=== PATIENT | male | born 1930 | race Caucasian/White ===

== ENCOUNTER 2018-01-08 13:32 | Inpatient (IN) ==
--- NOTE | 2018-01-08 14:04 | Emergency Department Note ---
Disposition Clinical Impression: Diabetic infection of left foot Osteomyelitis Qualifiers: Osteomyelitis type: unspecified type Osteomyelitis location: foot Laterality: left Qualified Code(s): M86.9 - Osteomyelitis, unspecified Disposition: Admitted As Inpatient Condition: Good Forms: ED Satisfaction Letter Time of Disposition: 15:22 General Adult HPI - General Chief complaint: ED Extremity Problem,Nontraumatic Stated complaint: Foot Ulcers Infected Time Seen by Provider: 01/08/18 13:43 Source: patient, family Mode of arrival: ambulatory Limitations: no limitations - History of Present Illness HPI Narrative: This is an 87-year-old male who was seen by podiatry yesterday because of concern for infection in his left foot. He was told to return if the erythema worsened. He has been taking antibiotics, and apparently the course was extended yesterday at podiatry. He does not know what antibiotic he has been taking. The student success advisor marked an area on his foot and he was supposed to return if the erythema extended beyond that region. Apparently it was earlier today, but is not at the time of interview and exam. Pain Scale: 6 - Related Data Home Medications Medication Instructions Recorded Confirmed Calcitriol 0.25 mcg PO DAILY 06/04/15 06/04/15 Clopidogrel [Plavix] 75 mg PO DAILY 06/04/15 06/04/15 Diltiazem HCl [Diltiazem ER] 240 mg PO DAILY 06/04/15 06/04/15 Finasteride [Proscar] 5 mg PO DAILY 06/04/15 06/04/15 Furosemide [Lasix] 40 mg PO DAILY 06/04/15 06/04/15 Glimepiride [Amaryl] 2 mg PO BID 06/04/15 06/04/15 Glimepiride [Amaryl] 2 mg PO BID 06/04/15 06/04/15 Lovastatin 10 mg PO DAILY 06/04/15 06/04/15 Previous Rx's Medication Instructions Recorded Ibuprofen [Motrin] 400 mg PO Q6HR #30 tablet 06/04/15 Sulfamethoxazole/Trimeth DS 1 each PO BID #20 tablet 04/09/17 [Bactrim DS] Allergies Allergy/AdvReac Type Severity Reaction Status Date / Time Penicillins AdvReac Itching Verified 06/04/15 15:56 All systems ED: reviewed and negative except as stated. Integumentary: Reports: other (Erythema of the toes of the left foot) Past Medical History - Past Medical History Medical history: Reports: diabetes Psychiatric history: Reports: no psych history - Social History Smoking Status: Never smoker Smokeless Tobacco Status: No Alcohol use: Reports: none Drug use: Reports: none Physical Exam - General Limitations: no limitations General appearance: alert, in no apparent distress - Head Head exam: atraumatic, normocephalic, normal inspection - Eye Eye exam: Present: normal appearance, PERRL, EOMI - Chest Chest inspection: Present: normal inspection, symmetric chest wall rise - Respiratory Respiratory exam: Present: normal lung sounds bilaterally - Cardiovascular Cardiovascular exam: Present: regular rate, normal rhythm, normal heart sounds - Abdominal Exam Abdominal exam: Present: soft, Non-Tender. Absent: tenderness, distention, guarding, rebound, rigidity - Extremities Exam Extremities exam: Present: other (The toes of the left foot are erythematous, especially the second toe, where there is an almost 1 cm diameter ulcer on the medial side of the toe that apparently was evaluated by podiatry yesterday. The erythema extends about 5 mm onto the dorsal aspect of the foot from the proximal toes.) - Neurological Exam Neurological exam: Present: alert, oriented X3 - Psychiatric Psychiatric exam: Present: normal affect, normal mood - Skin Skin exam: Present: warm, dry, intact, normal color Course Course Narrative: This is an 87-year-old male with concern for infection of the left second toe. He had an MRI yesterday, and I reviewed the results which are concerning for osteomyelitis. Vital Signs Temperature 97.8 F 01/08/18 13:35 Pulse Rate 82 01/08/18 13:35 Respiratory Rate 15 01/08/18 13:35 Blood Pressure 189/73 01/08/18 13:35 O2 Sat by Pulse Oximetry 100 01/08/18 13:35 Temperature 97.8 F 01/08/18 14:10 Pulse Rate 82 01/08/18 14:10 Respiratory Rate 15 01/08/18 14:10 Blood Pressure 189/73 01/08/18 14:10 O2 Sat by Pulse Oximetry 100 01/08/18 14:10 Oxygen Delivery Oxygen Delivery Room Air Medical Decision Making - MDM Narrative Medical decision making narrative: This is an 87-year-old male with osteomyelitis of his left second toe. He becau se of penicillin allergy, he was started on meropenem per the recommendations an up-to-date. - Lab Data Lab results reviewed: Yes I reviewed the patient's lab results. Lab results narrative: CBC was unremarkable BMP was unremarkable except for BUN elevated at 50 and creatinine elevated at 2.9 Lactic acid was normal at 1.8 Result diagrams: 01/08/18 14:38 01/08/18 14:38 Lab Results 01/08/18 01/08/18 01/08/18 Range/Units 14:38 14:38 14:38 WBC 8.1 (4.3-11.1) K/mcL RBC 4.42 (4.19-5.50) M/mcL Hgb 13.6 (12.9-16.9) g/dL Hct 41.1 (37.5-50.1) % MCV 93.0 (83.0-100.0) fL MCH 30.8 (28.0-33.3) pg MCHC 33.1 (31.6-35.5) g/dL RDW 13.3 (11.5-14.5) % Plt Count 141 (140-400) K/mcL MPV 11.8 (9.4-12.4) fL Immature Gran % 0.4 (0-4) % Seg Neutrophils % 73.0 % Lymphocytes % 15.6 % Monocytes % 9.0 % Eosinophils % 1.6 % Basophils % 0.4 % Neutrophils # 6.0 (1.6-8.9) K/mcL Lymphocytes # 1.3 (0.6-4.6) K/mcL Monocytes # 0.7 (0.0-1.3) K/mcL Eosinophils # 0.1 (0.0-0.6) K/mcL Basophils # 0.0 (0.0-0.2) K/mcL Sodium 140 (136-145) mEq/L Potassium 3.9 (3.5-5.1) mEq/L Chloride 111 H (98-107) mEq/L Carbon Dioxide 22 L (23-29) mEq/L BUN 50 H (8-23) mg/dL Creatinine 2.09 H (0.70-1.30) mg/dL Est GFR ( Amer) 36 L (> 60) Est GFR (Non-Af Amer) 30 L (> 60) BUN/Creatinine Ratio 24 (6-26) Glucose 178 H (70-105) mg/dL Calculated Osmolality 308 H (280-300) Lactic Acid 1.5 (0.5-2.2) mmol/L Calcium 9.1 (8.6-10.3) mg/dL - Radiology Data Radiology results reviewed: Yes I reviewed the patient's radiology results. MRI obtained yesterday showed osteomyelitis of the left second toe Critical Care Time Critical Care Time: No
[2018-01-08 14:56] LABS: Basophils % 0.4 %; Eosinophils # 0.1 K/mcL (0.0-0.6); Eosinophils % 1.6 %; Hematocrit 41.1 % (37.5-50.1); Hemoglobin 13.6 g/dL (12.9-16.9); Immature Granulocytes % 0.4 % (0-4); Lymphocytes # 1.3 K/mcL (0.6-4.6); Lymphocytes % 15.6 %; Mean Corpuscular HGB Conc 33.1 g/dL (31.6-35.5); Mean Corpuscular Hemoglobin 30.8 pg (28.0-33.3); Mean Platelet Volume 11.8 fL (9.4-12.4); Monocytes # 0.7 K/mcL (0.0-1.3); Platelet Count 141 K/mcL (140-400); Red Blood Count 4.42 M/mcL (4.19-5.50); Red Cell Distribution Width 13.3 % (11.5-14.5)
[2018-01-08 15:14] LABS: Calcium 9.1 mg/dL (8.6-10.3); Potassium 3.9 mEq/L (3.5-5.1)
[2018-01-08] MEDS: Meropenem 1,000 MG in Water for inj. (sterile) 20 ML 10 ML IVP SCH ×2 (16:42→23:42)
[2018-01-08] MEDS ORDERED: Naloxone 0.4 MG/ML INJ IVP PRN (16:49)
--- NOTE | 2018-01-08 16:51 | Internal Med History&Physical ---
Date of Encounter: 01/08/18 Time of Encounter: 16:49 Internal Medicine - H&P: HPI Admitted From: Emergency Dept Plans for Post Hospital Care: at Home History of present illness: Mr. Betts is a 87 year old male with history of diabetes mellitus, hypertension, peripheral neuropathy was sent to ER by his toe closing machine tender for further management of chronic nonhealing ulcer and newly diagnosed osteomyelitis. Patient has several rounds of antibiotic especially doxycycline and a started on clindamycin yesterday but failed outpatient therapy. MRI was done yesterday at toe closing machine tender's office with concern of osteomyelitis. In ER meropenem and [place] ncomycin was restarted by ER physician and called on-call hospitalists for the admission for IV antibiotic with the diagnosis of osteomyelitis Patient denies fever chills nausea vomiting headache dizziness chest pain shortness of breath abdominal pain urinary bowel complaint Past Med Surg Social Fam HX - Past Medical History Medical history: diabetes Psychiatric history: no psych history - Past Surgical History Additional surgical history: bowel surgery - Social History Smoking Status: Never smoker Smokeless Tobacco Status: No Alcohol use: none Drug use: none Internal Medicine - H&P: Meds Calcitriol 0.25 mcg PO DAILY 06/04/15 [History] Clopidogrel [Plavix] 75 mg PO DAILY 06/04/15 [History] Diltiazem HCl [Diltiazem ER] 240 mg PO DAILY 06/04/15 [History] Finasteride [Proscar] 5 mg PO DAILY 06/04/15 [History] Furosemide [Lasix] 40 mg PO DAILY 06/04/15 [History] Glimepiride [Amaryl] 2 mg PO BID 06/04/15 [History] Ibuprofen [Motrin] 400 mg PO Q6HR #30 tablet 06/04/15 [Rx] Lovastatin 10 mg PO DAILY 06/04/15 [History] Allergy/AdvReac Type Severity Reaction Status Date / Time Penicillins AdvReac Itching Verified 06/04/15 15:56 All Systems PM: A 10-system review of systems was performed and is negative for pertinent findings except as documented above in the HPI. - Constitutional Vitals: Temp Pulse Resp BP Pulse Ox 97.6 F 77 18 195/78 96 01/08/18 16:10 01/08/18 16:10 01/08/18 16:10 01/08/18 16:10 01/08/18 16:10 Exam: General appearance: No acute distress Eye exam: EOMI, PERRLA ENT exam: Moist oral mucosa, hard of hearing Neck nontender, supple Respiratory exam: Clear to auscultation bilaterally Cardiovascular exam: Regular rate and rhythm, no systolic murmur Abdominal exam: Soft, nontender, nondistended, positive bowel sounds Extremities exam: Left foot-erythematous dorsum that extend to toes but especially second toe where almost 1 cm diameter ulcer medially with no active discharge. Neurological exam: Alert, awake, oriented 3, CN II-XII intact, no focal deficits. No facial droop. Normal speech. Unable to ambulate due to foot ulcer. Motor 4-5 x 5 in all extremities Internal Med - H&P Results - Labs CBC & Chem 7: 01/08/18 14:38 01/08/18 14:38 Labs: Short CBC 01/08/18 Range/Units 14:38 WBC 8.1 (4.3-11.1) K/mcL Hgb 13.6 (12.9-16.9) g/dL Hct 41.1 (37.5-50.1) % Plt Count 141 (140-400) K/mcL Neutrophils # 6.0 (1.6-8.9) K/mcL BMP 01/08/18 14:38 Sodium 140 Potassium 3.9 Chloride 111 H Carbon Dioxide 22 L BUN 50 H Creatinine 2.09 H Glucose 178 H Calcium 9.1 - Assessment and plan (1) Osteomyelitis Current Visit: Yes Status: Acute Assessment and plan: Had recent MRI. Failed outpatient antibiotic. Continue vancomycin and meropenem as it was restarted by ER physician. Consulted toe closing machine tender for further management. Pain medicine with Tylenol when necessary and will consider a stronger as per requirement. Qualifiers: Osteomyelitis type: unspecified type Osteomyelitis location: foot Laterality: left Qualified Code(s): M86.9 - Osteomyelitis, unspecified (2) Diabetic infection of left foot Current Visit: Yes Status: Acute Assessment and plan: With peripheral neuropathy. Chronic nonhealing ulcer. Needs to have Good Diabetes control. Fall precaution. Will also consult PT and OT social services specialist (3) Hypertension Current Visit: Yes Status: Acute Assessment and plan: High blood pressure at this time but we are is still working to get home medication. 1 dose of hydralazine given. Will resume home medicine after getting [id number] done. Hydralazine when necessary Qualifiers: Hypertension type: essential hypertension Qualified Code(s): I10 - Essential (primary) hypertension (4) CKD (chronic kidney disease) stage 3, GFR 30-59 ml/min Current Visit: Yes Status: Acute Assessment and plan: Baseline creatinine level. Continue to monitor. Avoid nephrotoxic medicine. (5) DVT prophylaxis Current Visit: Yes Status: Acute Assessment and plan: SCDs, heparin - Time Spent With Patient Total time spent is greater than 50% in coordination of care (as documented) at patient's floor/unit and/or counseling patient: 25 - 35 minutes
[2018-01-08] MEDS ORDERED: *HR* Dextrose 50 % in Water (Syg) 50 ML SYRINGE IVP PRN (17:04)
[2018-01-08] MEDS ORDERED: Dextrose Gel 15 GM/37.5 ML TUBE PO PRN ×2 (17:04)
[2018-01-08] MEDS ORDERED: D5% in Water 1,000 ML IVC PRN (17:04)
[2018-01-08 18:00] LABS: INR 1.2; Prothrombin Time 13.1 Seconds (9.4-12.1)
[2018-01-08 18:02] LABS: Activated Partial Thrombo Time 29.6 Seconds (26.0-36.0)
[2018-01-08] MEDS: *HR* Heparin 5,000 UNIT/ML VIAL SQ SCH (18:40)
[2018-01-09 05:20] LABS: Calcium 8.7 mg/dL (8.6-10.3); Potassium 3.7 mEq/L (3.5-5.1)
[2018-01-09] MEDS: *HR* Heparin 5,000 UNIT/ML VIAL SQ SCH ×2 (05:50→17:54)
[2018-01-09] MEDS: Meropenem 1,000 MG in Water for inj. (sterile) 20 ML 10 ML IVP SCH ×2 (09:39→17:53)
[2018-01-09] MEDS: Insulin LISPRO 300 UNITS/3 ML VIAL SQ SCH ×3 (09:44→17:44)
[2018-01-09] MEDS: Diltiazem CD (24hr) 120 MG CAPSULE PO SCH (09:44)
[2018-01-09] MEDS: Finasteride 5 MG TABLET PO SCH (09:44)
[2018-01-09] MEDS: CICLOPIROX TP SCH (09:57)
--- NOTE | 2018-01-09 13:42 | Podiatry Consult Note ---
Date of Encounter: 01/09/18 Time of Encounter: 12:15 Assessment and Plan (1) Toe ulcer due to DM Current visit: Yes Status: Acute Assessment: #1 ulceration toe #2 left foot with positive probe to bone, and associated cellulitis of the toe and dorsal left foot #2 diabetes with vascular disease and multiple comorbidities #3 awaiting blood cultures Plan: #1 agree with present broad-spectrum antibiotic therapy #2 institute local wound care and separation of digits #3 we will proceed with medical management of his infection versus surgical intervention which would likely include amputation of the toe the patient is refractory to any kind of surgical intervention at this time Qualifiers: Diabetes mellitus type: type 2 Non-pressure ulcer stage: with fat layer exposed Qualified Code(s): E11.621 - Type 2 diabetes mellitus with foot ulcer; L97.512 - Non-pressure chronic ulcer of other part of right foot with fat layer exposed History of Present Illness Chief complaint: Ulcer of toe #2 left foot acute and chronic HPI: Mr. Betts is a 87 year old male, Dr. Valencia who is been managing a ulceration on the medial aspect of toe #2. He is a known vasculopath. He was instructed to proceed to the ED should any signs or symptoms of infection present. He noticed increasing redness with proximal migration on the dorsal aspect of his foot he presented to the emergency department and was then admitted for intraven ous antibiotics because of the spreading cellulitis. He presently is in no acute distress answers questions appropriately is oriented 3 it was quite was sleeping upon immediately entering the room. I had the opportunity to interview the patient and he was forthcoming as to the wound itself and his history. Review of recent imaging studies reveal likely osteomyelitis per MRI. X-rays do not show any obvious erosion of the bone at this time. Past Med Surg Social Fam HX - Past Medical History Medical history: diabetes Psychiatric history: no psych history - Past Surgical History Additional surgical history: bowel surgery x 2 - Social History Smoking Status: Never smoker Smokeless Tobacco Status: No Alcohol use: none Drug use: none Medications and Allergies Clopidogrel [Plavix] 75 mg PO DAILY 06/04/15 [History] Finasteride [Proscar] 5 mg PO DAILY 06/04/15 [History] Glimepiride [Amaryl] 4 mg PO QAM 06/04/15 [History] Lovastatin 10 mg PO DAILY 04/22/16 [History] Calcitriol [Rocaltrol] 0.25 mcg PO DAILY 01/08/18 [History] Ciclopirox 1 applic TP DAILY 01/08/18 [History] Collagenase Oint [Santyl] 1 applic TP DAILY 01/08/18 [History] Donepezil [Aricept] 5 mg PO HS 01/08/18 [History] Glimepiride [Amaryl] 2 mg PO QPM 01/08/18 [History] Ibuprofen [Motrin] 400 mg PO Q6HR PRN 01/08/18 [History] Omeprazole [PriLOSEC] 40 mg PO DAILY 01/08/18 [History] dilTIAZem HCl [Diltiazem 24Hr ER] 120 mg PO DAILY 01/08/18 [History] Allergy/AdvReac Type Severity Reaction Status Date / Time Penicillins AdvReac Itching Verified 01/08/18 18:40 All Systems Reviewed: The remainder of the systems were reviewed and are negative Physical Exam - Constitutional Vitals: Temp Pulse Resp BP Pulse Ox 97.7 F 75 20 171/73 97 01/09/18 12:06 01/09/18 12:06 01/09/18 12:06 01/09/18 12:06 01/09/18 12:06 General appearance: average body habitus, no acute distress - Expanded Lower Extremities Exam Foot/Toe exam: Present: erythema (We observe ulceration on the medial aspect of the proximal interphalangeal joint toe #2 left foot measuring approximately 0.6 cm in diameter 0.3 cm in depth. 100% fibrinous tissue. Toe is globally edematous and erythematous. We also realizes he has a rigid hammertoe deformity. He also exhibits HAV deformity with an ulceration of the lateral aspect of IP joint of the toe #1.) Neuro vascular tendon exam: Present: pulse deficit Gait: Present: not tested/not observed - Neurological Exam Additional comments: There are no gross focal neurological deficits of either foot or leg. DTRs Achilles and patellar equal symmetrical. Epicritic 2-point determination light touch and vibration are intact from toes to tibia bilaterally. No spasticity no rigidity no flaccidity. Rigidity associated with his arthritic changes of the digits of both feet secondary to HAV deformity and hammertoes. - Psychiatric Psychiatric exam: Present: normal affect Results - Labs Result Diagrams: 01/08/18 14:38 01/09/18 04:22 Labs: Abnormal lab results PT 13.1 Seconds (9.4-12.1) H 01/08/18 17:28 Chloride 116 mEq/L (98-107) H 01/09/18 04:22 Carbon Dioxide 20 mEq/L (23-29) L 01/09/18 04:22 BUN 47 mg/dL (8-23) H 01/09/18 04:22 Creatinine 1.72 mg/dL (0.70-1.30) H 01/09/18 04:22 Est GFR ( Amer) 46 (> 60) L 01/09/18 04:22 Est GFR (Non-Af Amer) 38 (> 60) L 01/09/18 04:22 BUN/Creatinine Ratio 27 (6-26) H 01/09/18 04:22 POC Glucose 121 mg/dL (70-99) H 01/09/18 11:13 Calculated Osmolality 308 (280-300) H 01/09/18 04:22 B-Natriuretic Peptide 378 pg/mL (Less than 100) H 01/09/18 04:22 H & H 01/08/18 Range/Units 14:38 Hgb 13.6 (12.9-16.9) g/dL Hct 41.1 (37.5-50.1) % All other labs normal. - Diagnostic results Ankle/Foot x-ray: image reviewed Ankle/Foot MRI: image reviewed Consult Discharge Plan - Plan Referrals: Howard Finn DO [Primary Care Provider] -
--- NOTE | 2018-01-09 15:13 | Internal Med Progress Note ---
Hospitalist Progress Note - Encounter Date of Encounter: 01/09/18 Time of Encounter: 15:07 - Subjective Interval History: Patient lying comfortably on bed. Denies fever chills nausea vomiting headache dizziness chest pain shortness of breath cough or urinary complaint. Review the lab with trending down creatinine level. Review of consulted note - Exam Vitals: Temp Pulse Resp BP Pulse Ox 97.7 F 75 20 171/73 97 01/09/18 12:06 01/09/18 12:06 01/09/18 12:06 01/09/18 12:06 01/09/18 12:06 Exam: General appearance: No acute distress Respiratory exam: Clear to auscultation bilaterally Cardiovascular exam: Regular rate and rhythm, no systolic murmur Abdominal exam: Soft, nontender, nondistended, positive bowel sounds Extremities exam: Left foot-erythematous dorsum that extend to toes but especially second toe where almost 1 cm diameter ulcer medially with no active discharge. Neurological exam: Alert, awake, oriented 3, CN II-XII intact, no focal deficits. Unable to ambulate due to foot ulcer. Motor 4-5 x 5 in all extremities - Assessment and Plan (1) Osteomyelitis Current Visit: Yes Status: Acute Assessment and Plan: Had recent MRI. Failed outpatient antibiotic. Continue vancomycin and meropenem as it was started by ER physician. Telemetry Technician's on board and he had discussion about medical management versus surgical intervention and patient inclined to worse conservative medical management therefore will continue IV antibiotic and monitor patient closely. Continue Pain medicine when necessary. Optimum control of pain Discharge plan as per flask fitter's recommendation (2) Diabetic infection of left foot Current Visit: Yes Status: Acute Assessment and Plan: With peripheral neuropathy. Chronic nonhealing ulcer. Good Diabetes control. Fall precaution. Consulted PT and OT social staff worker (3) Hypertension Current Visit: Yes Status: Acute Assessment and Plan: Better controlled blood pressure therefore continue home medicine. Close monitoring of blood pressure. (4) CKD (chronic kidney disease) stage 3, GFR 30-59 ml/min Current Visit: Yes Status: Acute Assessment and Plan: Acute on chronic is trending down creatinine level. Continue to monitor. Avoid nephrotoxic medicine. (5) DVT prophylaxis Current Visit: Yes Status: Acute Assessment and Plan: SCDs, heparin - Time Spent with Patient Total time spent is greater than 50% in coordination of care (as documented) at patient's floor/unit and/or counseling patient: 25 - 35 minutes Plan of Care Discussed with: patient (Discuss plan of care with nursing staff and case management) Internal Medicine: Result - Labs CBC & Chem 7: 01/08/18 14:38 01/09/18 04:22 Labs: BMP 01/08/18 01/09/18 14:38 04:22 Sodium 140 143 Potassium 3.9 3.7 Chloride 111 H 116 H Carbon Dioxide 22 L 20 L BUN 50 H 47 H Creatinine 2.09 H 1.72 H Glucose 178 H 99 Calcium 9.1 8.7 - ABG Interpretation ABG results: PT/INR, D-dimer PT 13.1 Seconds (9.4-12.1) H 01/08/18 17:28 Consult Discharge Plan - Plan Referrals: Howard Finn DO [Primary Care Provider] - (1) Osteomyelitis Qualifiers: Osteomyelitis type: unspecified type Osteomyelitis location: foot Laterality: left Qualified Code(s): M86.9 - Osteomyelitis, unspecified (3) Hypertension Qualifiers: Hypertension type: essential hypertension Qualified Code(s): I10 - Essential (primary) hypertension
[2018-01-10] MEDS: Meropenem 1,000 MG in Water for inj. (sterile) 20 ML 10 ML IVP SCH ×2 (00:01→07:56)
[2018-01-10] MEDS: *HR* Heparin 5,000 UNIT/ML VIAL SQ SCH ×2 (05:56→17:07)
[2018-01-10] MEDS: Insulin LISPRO 300 UNITS/3 ML VIAL SQ SCH ×3 (07:34→17:03)
[2018-01-10] MEDS: Diltiazem CD (24hr) 120 MG CAPSULE PO SCH (07:56)
[2018-01-10] MEDS: Finasteride 5 MG TABLET PO SCH (07:56)
[2018-01-10] MEDS: CICLOPIROX TP SCH (07:57)
--- NOTE | 2018-01-10 10:45 | Podiatry Progress Note ---
Date of Encounter: 01/10/18 Time of Encounter: 10:00 - Assessment and Plan (1) Diabetic infection of left foot Current Visit: Yes Status: Acute Assessment: Cellulitis noted to left forefoot and 2nd toe. Medial ulcer toe #2 measuring 1 x 1 x 0.3 cm Plantar ulcer toe #2 measuring 1 x 0.5 x 0.3 cm Ulcerations probe to bone. Slough noted to both ulcerations. Erythema noted to wound edges Blood cultures pending. 11/15/17 GILL showed non-compressible vessles bilaterally 11/15/17 TCPO2 R ankle 58, R foot 57, L ankle 55, L foot 50, consistent with healing MRI on 01/07/18 compatitble with OM. 01/07/18 cultures in office gram stain showed few gram positive and few gram negative rods WBC 01/08/18 8.1 MR/MR foot LT wo con IMPRESSION: 1. Small ulceration along the plantar aspect of the 2nd toe with marrow signal changes of the middle and distal phalanges of the 2nd toe most compatible with osteomyelitis. 2. Diffuse soft tissue edema. Correlate clinically for cellulitis. No organized drainable fluid collection identified. 3. Small amount of fluid noted at both the 1st and 3rd interspaces likely reflecting intermetatarsal bursitis. 4. Lozv-gf-[id number] osteoarthritis. Plan: Cleansed foot with warm soap and water. Applied adaptic, 4x4 dry gauze, and kerlex. Change dressing per orders. Wear surgical shoes when ambulating. Recommend ID for ATB management. Patient at this time does not want surgery. Will order wound cultures. (2) Osteomyelitis Current Visit: Yes Status: Acute See above plan Qualifiers: Osteomyelitis type: unspecified type Osteomyelitis location: foot Laterality: left Qualified Code(s): M86.9 - Osteomyelitis, unspecified Subjective Interval history: Patient awake in chair. Alert and oriented x 3. Patient able to ambulate to bed with assistance. Currently wearing surgical shoes. Denies any calf pain, shortness of breath, chest pain, nausea, vomiting, diarrhea, fever or chills. Denies any pain or any overnight complications. Objective - Vital Signs Vital Signs: Vital Signs Temp Pulse Resp BP Pulse Ox 01/10/18 07:16 98.0 F 67 18 155/69 97 01/10/18 04:39 97.7 F 75 18 128/70 97 01/10/18 00:22 98.0 F 90 18 143/72 95 01/09/18 19:48 97.8 F 80 16 145/63 98 01/09/18 18:07 97.7 F 78 20 166/76 99 01/09/18 15:17 97.8 F 69 15 170/75 99 01/09/18 12:06 97.7 F 75 20 171/73 97 Intake and Output 01/09/18 01/10/18 01/10/18 23:59 07:59 15:59 Intake Total 500 / 500 310 / 310 Output Total 100 / 100 250 / 250 75 / 75 Balance 400 / 400 -240 / -240 235 / 235 Intake: IV Fluids 260 / 260 Merrem 1,000 MG In Water for inj. (sterile) 10 ML @ 120 mls/ hr IVP Q8HR ABDIRAHMAN Rx#:[id number] Vancocin 1,000 MG In 0.9 % 250 / 250 Sodium Chloride 250 ML @ 167 mls/hr IVPB ONCE ONE Rx#: [id number] Oral 240 / 240 0 / 0 300 / 300 Output: Urine 100 / 100 250 / 250 75 / 75 Other: Meal Dinner Breakfast Percent of Meal Consumed 90% 75% # Voids 1 Weight 103.6 kg Blood Glucose* 132 137 Patient Weight 01/10/18 23:59 Weight 103.6 kg - Lab Result Diagrams: 01/08/18 14:38 01/09/18 04:22 Labs: Abnormal lab results PT 13.1 Seconds (9.4-12.1) H 01/08/18 17:28 Chloride 116 mEq/L (98-107) H 01/09/18 04:22 Carbon Dioxide 20 mEq/L (23-29) L 01/09/18 04:22 BUN 47 mg/dL (8-23) H 01/09/18 04:22 Creatinine 1.72 mg/dL (0.70-1.30) H 01/09/18 04:22 Est GFR ( Amer) 46 (> 60) L 01/09/18 04:22 Est GFR (Non-Af Amer) 38 (> 60) L 01/09/18 04:22 BUN/Creatinine Ratio 27 (6-26) H 01/09/18 04:22 POC Glucose 132 mg/dL (70-99) H 01/09/18 20:33 Calculated Osmolality 308 (280-300) H 01/09/18 04:22 B-Natriuretic Peptide 378 pg/mL (Less than 100) H 01/09/18 04:22 Microbiology, Last 48 Hours 01/08/18 14:38 Blood Culture - Preliminary Peripheral Venipuncture Culture is incubating and being continuously monitored for growth. Final report to follow. 01/08/18 14:38 Blood Culture - Preliminary Peripheral Venipuncture Culture is incubating and being continuously monitored for growth. Final report to follow. Consult Discharge Plan - Plan Additional Instructions: Follow up in 1 week post d/c with Dr Valencia outpatient Referrals: Howard Finn DO [Primary Care Provider] - Kishore Valencia DPM [Partnered Physician] -
[2018-01-10] MEDS: Cefepime HCl 2,000 MG in Water for inj. (sterile) 20 ML 20 ML IVP SCH (16:45)
[2018-01-10] MEDS: Acetaminophen 325 MG TABLET PO PRN ×2 (17:07)
--- NOTE | 2018-01-10 19:03 | Internal Med Progress Note ---
Hospitalist Progress Note - Encounter Date of Encounter: 01/10/18 Time of Encounter: 11:00 - Subjective Interval History: Patient resting comfortably in bed and denies fevers chills nausea vomiting headache chest pain shortness of breath cough or any urinary complaint. Verbalizes mild concern regarding potential loss of the infected second toe on the left foot. States that he does want to save the toe at all costs - Exam Vitals: Temp Pulse Resp BP Pulse Ox 97.7 F 82 16 146/67 96 01/10/18 17:18 01/10/18 17:18 01/10/18 17:18 01/10/18 17:18 01/10/18 17:18 Exam: Table - Assessment and Plan (1) Osteomyelitis Current Visit: Yes Status: Acute Assessment and Plan: We will continue with his IV antibiotics will start him on Cefepime 2000 mg daily (2) Diabetic infection of left foot Current Visit: Yes Status: Acute Assessment and Plan: We will continue with his diabetic regimen and monitoring blood sugars monitoring for pain control (3) Hypertension Current Visit: Yes Status: Acute Assessment and Plan: We will continue with antihypertensive medications blood pressures are trending down today 146/67. We will continue to monitor vital signs per protocol (4) DVT prophylaxis Current Visit: Yes Status: Acute Assessment and Plan: SCDs, heparin (5) CKD (chronic kidney disease) stage 3, GFR 30-59 ml/min Current Visit: Yes Status: Acute Assessment and Plan: GFR remains a stage III level with level low at 38 creatinine has improved today at 1.72 that is down from 2.09 from yesterday, BNP is mildly elevated at 378/ we will continue to monitor daily labs - Summary of Assessment and Plan Summary of Assessment and Plan: Mr. Betts is an 87-year-old male who is continued with the IV antibiotics for osteomyelitis of the left second toe and left diabetic of foot. Podiatry management is continuing to monitor this patient he was seen today. Patient does not want surgery. Recommendations was to clean the foot with soap and water apply Adaptic 4 x 4 dry gauze and Kerlix. ID was recommended for antibiotic Management. And wound cultures were obtained. Renal status has stabilized but he still remains at a chronic kidney disease stage III, continue to monitor daily labs with GFR and creatinine and will address changes in medications as needed - Time Spent with Patient Total time spent is greater than 50% in coordination of care (as documented) at patient's floor/unit and/or counseling patient: less than 15 minutes Plan of Care Discussed with: patient Internal Medicine: Result - Labs CBC & Chem 7: 01/08/18 14:38 01/09/18 04:22 - ABG Interpretation ABG results: PT/INR, D-dimer PT 13.1 Seconds (9.4-12.1) H 01/08/18 17:28 Consult Discharge Plan - Plan Additional Instructions: Follow up in 1 week post d/c with Dr Valencia outpatient Referrals: Kishore Valencia, MATY [Partnered Physician] - Howard Finn DO [Primary Care Provider] - (1) Osteomyelitis Qualifiers: Osteomyelitis type: unspecified type Osteomyelitis location: foot Lateralit y: left Qualified Code(s): M86.9 - Osteomyelitis, unspecified (3) Hypertension Qualifiers: Hypertension type: essential hypertension Qualified Code(s): I10 - Essential (primary) hypertension
[2018-01-11] MEDS: Acetaminophen 325 MG TABLET PO PRN (00:08)
[2018-01-11] MEDS: *HR* Heparin 5,000 UNIT/ML VIAL SQ SCH ×2 (05:05→17:21)
[2018-01-11] MEDS: CICLOPIROX TP SCH (08:47)
[2018-01-11] MEDS: Finasteride 5 MG TABLET PO SCH (08:55)
[2018-01-11] MEDS: Insulin LISPRO 300 UNITS/3 ML VIAL SQ SCH ×3 (08:55→17:26)
[2018-01-11] MEDS: Diltiazem CD (24hr) 120 MG CAPSULE PO SCH (08:56)
[2018-01-11 10:00] LABS: Basophils % 0.2 %; Hematocrit 42.3 % (37.5-50.1); Hemoglobin 13.6 g/dL (12.9-16.9); Immature Granulocytes % 0.6 % (0-4); Lymphocytes # 0.6 K/mcL (0.6-4.6); Lymphocytes % 5.5 %; Mean Corpuscular HGB Conc 32.2 g/dL (31.6-35.5); Mean Corpuscular Hemoglobin 30.4 pg (28.0-33.3); Mean Corpuscular Volume 94.4 fL (83.0-100.0); Mean Platelet Volume 12.6 fL (9.4-12.4); Monocytes # 0.7 K/mcL (0.0-1.3); Monocytes % 6.4 %; Neutrophils # 10.1 K/mcL (1.6-8.9); Platelet Count 122 K/mcL (140-400); Red Blood Count 4.48 M/mcL (4.19-5.50); Red Cell Distribution Width 13.6 % (11.5-14.5); Segmented Neutrophils % 87.3 %
[2018-01-11 10:18] LABS: Albumin 3.2 g/dL (3.5-5.7); Albumin/Globulin Ratio 1.1 (1.1-2.2); Bilirubin,Total 0.7 mg/dL (0.3-1.0); Calcium 9.2 mg/dL (8.6-10.3); Potassium 4.7 mEq/L (3.5-5.1); Total Protein 6.2 g/dL (6.4-8.9)
--- NOTE | 2018-01-11 13:13 | Podiatry Progress Note ---
<AndréshollisKishore Carrera - Last Filed: 01/11/18 13:37> Date of Encounter: 01/11/18 - Assessment and Plan (1) Osteomyelitis Current Visit: Yes Status: Acute Get infectious disease consult. Discussed with patient nature of the left second digit amputation, risks versus benefits potential complications consequences of surgery and his condition at length. No guarantees made as to the outcome. He understood that he could have a wound to heal. All of his questions were answered when I spoke with them. Added on to OR, NPO. Qualifiers: Osteomyelitis type: unspecified type Osteomyelitis location: foot Laterality: left Qualified Code(s): M86.9 - Osteomyelitis, unspecified Objective - Vital Signs Vital Signs: Vital Signs Temp Pulse Resp BP Pulse Ox 01/11/18 10:38 97.6 F 77 15 147/65 93 01/11/18 06:43 98 F 90 15 158/82 95 01/11/18 03:36 97.6 F 78 14 153/75 98 01/10/18 20:24 97.7 F 77 15 164/72 96 01/10/18 17:18 97.7 F 82 16 146/67 96 Intake and Output 01/10/18 01/11/18 01/11/18 23:59 07:59 15:59 Intake Total 510 / 510 0 / 0 240 / 240 Output Total 125 / 125 100 / 100 0 / 0 Balance 385 / 385 -100 / -100 240 / 240 Intake: IV Fluids 270 / 270 Maxipime 2,000 MG In Water for 20 / 20 inj. (sterile) 20 ML @ 300 mls/ hr IVP Q24H [facility] Rx#:[id number] Vancocin 1,000 MG In 0.9 % 250 / 250 Sodium Chloride 250 ML @ 167 mls/hr IVPB ONCE ONE Rx#: [id number] Oral 240 / 240 0 / 0 240 / 240 Output: Urine 125 / 125 100 / 100 0 / 0 Other: Meal Dinner Breakfast Percent of Meal Consumed 25% Stool Size Small Moderate Stool Consistency loose liquid Stool Color Green Brown # Voids 1 # Urine Diapers 1 # Bowel Movements 0 0 1 Weight 104.1 kg Blood Glucose* 162 226 243 Patient Weight 01/11/18 23:59 Weight 104.1 kg - Lab Result Diagrams: 01/11/18 09:47 01/11/18 09:47 Labs: Abnormal lab results WBC 11.5 K/mcL (4.3-11.1) H 01/11/18 09:47 Plt Count 122 K/mcL (140-400) L 01/11/18 09:47 MPV 12.6 fL (9.4-12.4) H 01/11/18 09:47 Neutrophils # 10.1 K/mcL (1.6-8.9) H 01/11/18 09:47 PT 13.1 Seconds (9.4-12.1) H 01/08/18 17:28 Chloride 111 mEq/L (98-107) H 01/11/18 09:47 Carbon Dioxide 22 mEq/L (23-29) L 01/11/18 09:47 BUN 49 mg/dL (8-23) H 01/11/18 09:47 Creatinine 1.96 mg/dL (0.70-1.30) H 01/11/18 09:47 Est GFR ( Amer) 39 (> 60) L 01/11/18 09:47 Est GFR (Non-Af Amer) 32 (> 60) L 01/11/18 09:47 Glucose 296 mg/dL (70-105) H 01/11/18 09:47 POC Glucose 257 mg/dL (70-99) H 01/11/18 08:49 Calculated Osmolality 314 (280-300) H 01/11/18 09:47 B-Natriuretic Peptide 378 pg/mL (Less than 100) H 01/09/18 04:22 Serum Total Protein 6.2 g/dL (6.4-8.9) L 01/11/18 09:47 Albumin 3.2 g/dL (3.5-5.7) L 01/11/18 09:47 Consult Discharge Plan - Plan Additional Instructions: Follow up in 1 week post d/c with Dr Valencia outpatient Referrals: Kishore Valencia DPM [Partnered Physician] - Howard Finn DO [Primary Care Provider] - <Krystal Patel - Last Filed: 01/11/18 16:12> Date of Encounter: 01/11/18 Time of Encounter: 11:30 - Assessment and Plan (1) Diabetic infection of left foot Current Visit: Yes Status: Acute Assessment: Cellulitis noted to left forefoot and 2nd toe. Medial ulcer toe #2 measuring 1 x 1 x 0.3 cm Plantar ulcer toe #2 measuring 1 x 0.5 x 0.3 cm Ulcerations probe to bone. Slough noted to both ulcerations. Erythema noted to wound edges. Left toe #2 erythematous and edematous Blood cultures pending. 11/15/17 GILL showed non-compressible vessles bilaterally 11/15/17 TCPO2 R ankle 58, R foot 57, L ankle 55, L foot 50, consistent with healing MRI on 01/07/18 compatitble with OM. 01/07/18 cultures in office gram stain showed few gram positive and few gram negative rods WBC 01/08/18 8.1 MR/MR foot LT wo con IMPRESSION: 1. Small ulceration along the plantar aspect of the 2nd toe with marrow signal changes of the middle and distal phalanges of the 2nd toe most compatible with osteomyelitis. 2. Diffuse soft tissue edema. Correlate clinically for cellulitis. No organized drainable fluid collection identified. 3. Small amount of fluid noted at both the 1st and 3rd interspaces likely reflecting intermetatarsal bursitis. 4. [id number] osteoarthritis. Plan: NPO now. Surgery this evening. Cleansed foot with warm soap and water. Applied adaptic, 4x4 dry gauze, and kerlex. Change dressing per orders. Wear surgical shoes when ambulating. Recommend ID for ATB management. (2) Osteomyelitis Current Visit: Yes Status: Acute OR this evening. See above plan Qualifiers: Qualified Code(s): M86.9 - Osteomyelitis, unspecified Subjective Interval history: Patient awake in bed. Alert and oriented x 3. Patient states he feels terrible today. States he feels dizzy and that his equilibrium is off. Denies any calf pain, shortness of breath, chest pain, nausea, vomiting, diarrhea, fever or chills. Objective - Vital Signs Vital Signs: Vital Signs Temp Pulse Resp BP Pulse Ox 01/11/18 10:38 97.6 F 77 15 147/65 93 01/11/18 06:43 98 F 90 15 158/82 95 01/11/18 03:36 97.6 F 78 14 153/75 98 01/10/18 20:24 97.7 F 77 15 164/72 96 01/10/18 17:18 97.7 F 82 16 146/67 96 Intake and Output 01/10/18 01/11/18 01/11/18 23:59 07:59 15:59 Intake Total 510 / 510 0 / 0 240 / 240 Output Total 125 / 125 100 / 100 0 / 0 Balance 385 / 385 -100 / -100 240 / 240 Intake: IV Fluids 270 / 270 Maxipime 2,000 MG In Water for 20 / 20 inj. (sterile) 20 ML @ 300 mls/ hr IVP Q24H [facility] Rx#:[id number] Vancocin 1,000 MG In 0.9 % 250 / 250 Sodium Chloride 250 ML @ 167 mls/hr IVPB ONCE ONE Rx#: [id number] Oral 240 / 240 0 / 0 240 / 240 Output: Urine 125 / 125 100 / 100 0 / 0 Other: Meal Dinner Breakfast Percent of Meal Consumed 25% Stool Size Small Moderate Stool Consistency loose liquid Stool Color Green Brown # Voids 1 # Urine Diapers 1 # Bowel Movements 0 0 1 Weight 104.1 kg Blood Glucose* 162 226 243 Patient Weight 01/11/18 23:59 Weight 104.1 kg - Lab Result Diagrams: 01/11/18 09:47 01/11/18 09:47 Labs: Abnormal lab results WBC 11.5 K/mcL (4.3-11.1) H 01/11/18 09:47 Plt Count 122 K/mcL (140-400) L 01/11/18 09:47 MPV 12.6 fL (9.4-12.4) H 01/11/18 09:47 Neutrophils # 10.1 K/mcL (1.6-8.9) H 01/11/18 09:47 PT 13.1 Seconds (9.4-12.1) H 01/08/18 17:28 Chloride 111 mEq/L (98-107) H 01/11/18 09:47 Carbon Dioxide 22 mEq/L (23-29) L 01/11/18 09:47 BUN 49 mg/dL (8-23) H 01/11/18 09:47 Creatinine 1.96 mg/dL (0.70-1.30) H 01/11/18 09:47 Est GFR ( Amer) 39 (> 60) L 01/11/18 09:47 Est GFR (Non-Af Amer) 32 (> 60) L 01/11/18 09:47 Glucose 296 mg/dL (70-105) H 01/11/18 09:47 POC Glucose 257 mg/dL (70-99) H 01/11/18 08:49 Calculated Osmolality 314 (280-300) H 01/11/18 09:47 B-Natriuretic Peptide 378 pg/mL (Less than 100) H 01/09/18 04:22 Serum Total Protein 6.2 g/dL (6.4-8.9) L 01/11/18 09:47 Albumin 3.2 g/dL (3.5-5.7) L 01/11/18 09:47 - VTE Documentation of Mechanical Device: Intermittent pneumatic compression device
[2018-01-11] MEDS: Cefepime HCl 2,000 MG in Water for inj. (sterile) 20 ML 20 ML IVP SCH (15:32)
--- NOTE | 2018-01-11 16:07 | Infectious Disease Consult ---
Date of Encounter: 01/11/18 Time of Encounter: 16:04 Assessment and Plan (1) Osteomyelitis Status: Acute Assessment and plan: Causative organism not clear. Previous cultures in 2017 grew MRSA Patient was started on vancomycin and cefepime prior to me seeing him Patient going for left toe amputation by podiatry later today After surgery will discuss to see if the patient needs IV or we can switch him to by mouth antibiotics and once Intra-Op cultures are finalized and tailor antibiotics accordingly Goal vancomycin trough 10 Monitor labs and for drug toxicity Qualifiers: Osteomyelitis type: unspecified type Osteomyelitis location: foot Laterality: left Qualified Code(s): M86.9 - Osteomyelitis, unspecified (2) Diabetic infection of left foot Status: Acute (3) Hypertension Status: Acute Qualifiers: Hypertension type: essential hypertension Qualified Code(s): I10 - Essential (primary) hypertension (4) CKD (chronic kidney disease) stage 3, GFR 30-59 ml/min Status: Acute Assessment and plan: I measured creatinine clearance of about 26-30 Agree with decreasing the cefepime dose to every 24 hours We will monitor very closely Aggressive hydration Infectious Disease HPI - Data of Consult Patient: new to practice Consult date: 01/11/18 Requesting Physician: Claudia Page MD Primary Care Provider: Howard Finn DO - Consult Narrative Reason for consult: Osteomyelitis History of present illness: Mr. Betts is a 87 year old male Patient is an 87-year-old gentleman who presented to [facility] on 01/08/2018 as a send from podiatry for management of chronic nonhealing ulcer and osteomyelitis. We are consulted for antibiotic recommendations. Most of the information was taken from medical record as the patient is very hard of hearing and he was unable to understand what I was telling him. Patient with history of diabetes mellitus type 2, hypertension, peripheral neuropathy, shortness of breath, dyspnea on exertion with chronic nonhealing ulcer of the left foot. The patient underwent an MRI on 01/07/2018 and it was read as small ulceration along the plantar aspect of the second toe with marrow signal changes of the middle and distal phalanges of the second toe most compatible with osteomyelitis. Diffuse soft tissue edema colitis clinically with cellulitis no organized drainable fluid collection identified. Blood cultures were obtained and wound culture were obtained so far no growth. Keep in mind patient had MRSA in the past. Since admission patient has been afebrile,. Says of tachycardia and initial WBC of 8.1 with normal differential and today junk slightly to 11.5 with 87% neutro phils. Patient also was in acute kidney injury with to be on a 50 creatinine 2.09. Lactic acid was 1.5. Blood cultures and wound cultures no growth to date. Patient was started on empiric vancomycin and cefepime were asked to evaluate the patient's make further recommendations. I did call and speak with the podiatry team and apparently patient going for amputation later today. He does not remember wound VAC has been to penicillin. CC: Claudia Page MD Past Med Surg Social Fam HX - Past Medical History Medical history: diabetes Psychiatric history: no psych history - Past Surgical History Additional surgical history: bowel surgery x 2 - Social History Smoking Status: Never smoker Smokeless Tobacco Status: No Alcohol use: none Drug use: none Infectious Disease-CN:Meds Clopidogrel [Plavix] 75 mg PO DAILY 06/04/15 [History] Finasteride [Proscar] 5 mg PO DAILY 06/04/15 [History] Glimepiride [Amaryl] 4 mg PO QAM 06/04/15 [History] Lovastatin 10 mg PO DAILY 06/04/15 [History] Calcitriol [Rocaltrol] 0.25 mcg PO DAILY 01/08/18 [History] Ciclopirox 1 applic TP DAILY 01/08/18 [History] Collagenase Oint [Santyl] 1 applic TP DAILY 01/08/18 [History] Donepezil [Aricept] 5 mg PO HS 01/08/18 [History] Glimepiride [Amaryl] 2 mg PO QPM 01/08/18 [History] Ibuprofen [Motrin] 400 mg PO Q6HR PRN 01/08/18 [History] Omeprazole [PriLOSEC] 40 mg PO DAILY 01/08/18 [History] dilTIAZem HCl [Diltiazem 24Hr ER] 120 mg PO DAILY 01/08/18 [History] Allergy/AdvReac Type Severity Reaction Status Date / Time Penicillins AdvReac Itching Verified 01/08/18 18:40 Review of systems: 10 point ROS done, negative other for what's mentioned in the hPI Exam - Constitutional Vitals: Temp Pulse Resp BP Pulse Ox 98.1 F 84 18 133/67 98 01/11/18 14:46 01/11/18 14:46 01/11/18 14:46 01/11/18 14:46 01/11/18 14:46 - Head Head exam: Present: atraumatic, normocephalic - Eye Eye exam: Present: EOMI, PERRL - ENT ENT exam: Present: mucous membranes dry, normal exam - Neck Neck exam: Present: full ROM, normal inspection - Respiratory Additional comments: chest expanding symmetrically. positive wheezing and labored breathing but just sat down coming from bathroom. - Cardiovascular Cardiovascular exam: Present: RRR, +S1, +S2 - GI/Abdominal GI/Abdominal exam: Present: normal bowel sounds, soft, tenderness - Extremities Exam Additional comments: ulceration toe #2 left foot with positive probe to bone, and associated cellulitis of the toe and dorsal left foot - Neurological Exam Neurological exam: Present: alert, oriented X3 Infectious Disease CN: Results - Labs CBC & Chem 7: 01/11/18 09:47 01/11/18 09:47 Cultures: Cultures 01/08/18 14:38 Blood Culture - Preliminary Peripheral Venipuncture Culture is incubating and being continuously monitored for growth. Final report to follow. 01/08/18 14:38 Blood Culture - Preliminary Peripheral Venipuncture Culture is incubating and being continuously monitored for growth. Final report to follow. - VTE Documentation of Mechanical Device: Intermittent pneumatic compression device Consult Discharge Plan - Plan Additional Instructions: Follow up in 1 week post d/c with Dr Valencia outpatient Referrals: Kishore Valencia DPM [Partnered Physician] - Howard Finn DO [Primary Care Provider] -
--- NOTE | 2018-01-11 16:31 | Internal Med Progress Note ---
Hospitalist Progress Note - Encounter Date of Encounter: 01/11/18 Time of Encounter: 16:31 - Subjective Interval History: Pt denies fever or chills, He denies chest pain or SOB. He denies diarrhea. - Exam Vitals: Temp Pulse Resp BP Pulse Ox 98.1 F 84 18 133/67 98 01/11/18 14:46 01/11/18 14:46 01/11/18 14:46 01/11/18 14:46 01/11/18 14:46 Exam: Exam: General appearance: No acute distress Eye exam: EOMI, PERRLA ENT exam: Moist oral mucosa, hard of hearing Neck: non-tender, supple Respiratory exam: Clear to auscultation bilaterally Cardiovascular exam: Regular rate and rhythm, no systolic murmur Abdominal exam: Soft, non-tender, non-distended, positive bowel sounds Extremities exam: Left foot-erythematous dorsum that extend to toes but especially second toe where almost 1 cm diameter ulcer medially with no active discharge. Neurological exam: Alert, awake, oriented 3, CN II-XII intact, no focal deficits. No facial droop. Normal speech. Unable to ambulate due to foot ulcer. Motor 4-5 x 5 in all extremities - Assessment and Plan (1) Osteomyelitis Current Visit: Yes Status: Acute Assessment and Plan: Right leg wound culture 11/29/2016 grew MRSA. Patient was started on vancomycin and cefepime Patient going for left toe amputation by podiatry later today ID on board and will assist in determining if the patient needs IV or if he can be switched to by mouth antibiotics. Once Intra-Op cultures are finalized antibiotics will be tailored accordingly. Pharmacy to dose Vancomycin. (2) Diabetic infection of left foot Current Visit: Yes Status: Acute Assessment and Plan: We will continue with his diabetic regimen and monitoring blood sugars monitoring for pain control. Placed on basal and SSI. (3) Hypertension Current Visit: Yes Status: Acute Assessment and Plan: On Diltiazem We will continue to monitor vital signs per protocol (4) CKD (chronic kidney disease) stage 3, GFR 30-59 ml/min Current Visit: Yes Status: Acute Assessment and Plan: GFR remains a stage III level with level low at 38. Will continue to monitor creatinine levels. Will continue to monitor daily labs DVT Prophylaxis: SCDs, heparin - Summary of Assessment and Plan Summary of Assessment and Plan: History of present illness: Dr. Burdick Mr. 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 Patient has several rounds of antibiotic especially doxycycline and a started on clindamycin yesterday but failed outpatient therapy. MRI was done yesterday at refractory products supervisor's office with concern of osteomyelitis. In ER meropenem and vancomycin was restarted by ER physician and called on-call hospitalists for the admission for IV antibiotic with the diagnosis of osteomyelitis Patient denies fever chills nausea vomiting headache dizziness chest pain shortness of breath abdominal pain urinary bowel complaint - Time Spent with Patient Total time spent is greater than 50% in coordination of care (as documented) at patient's floor/unit and/or counseling patient: less than 15 minutes Plan of Care Discussed with: patient Internal Medicine: Result - Labs CBC & Chem 7: 01/11/18 09:47 01/11/18 09:47 Labs: Short CBC 01/11/18 Range/Units 09:47 WBC 11.5 H (4.3-11.1) K/mcL Hgb 13.6 (12.9-16.9) g/dL Hct 42.3 (37.5-50.1) % Plt Count 122 L (140-400) K/mcL Neutrophils # 10.1 H (1.6-8.9) K/mcL BMP 01/11/18 09:47 Sodium 140 Potassium 4.7 Chloride 111 H Carbon Dioxide 22 L BUN 49 H Creatinine 1.96 H Glucose 296 H Calcium 9.2 Liver Function 01/11/18 Range/Units 09:47 Total Bilirubin 0.7 (0.3-1.0) mg/dL AST 18 (13-39) Units/L ALT 9 (7-52) Units/L Alkaline Phosphatase 84 (34-104) Units/L Albumin 3.2 L (3.5-5.7) g/dL - ABG Interpretation ABG results: PT/INR, D-dimer PT 13.1 Seconds (9.4-12.1) H 01/08/18 17:28 - VTE Documentation of Mechanical Device: Intermittent pneumatic compression device Consult Discharge Plan - Plan Additional Instructions: Follow up in 1 week post d/c with Dr Valencia outpatient Referrals: Kishore Valencia, MATY [Partnered Physician] - Howard Finn DO [Primary Care Provider] - (1) Osteomyelitis Qualifiers: Osteomyelitis type: unspecified type Osteomyelitis location: foot Laterality: left Qualified Code(s): M86.9 - Osteomyelitis, unspecified (3) Hypertension Qualifiers: Hypertension type: essential hypertension Qualified Code(s): I10 - Essential (primary) hypertension
--- NOTE | 2018-01-11 17:53 | Event Note ---
Date of Encounter: 01/11/18 Time of Encounter: 17:51 Pt is extremely hard of hearing. Discussed code status with pt's son PRICILLA Padgtet and states pt wishes to be DNRCC
[2018-01-11] MEDS ORDERED: Insulin DETEMIR 100 UNIT/ML X5UNITS SQ SCH (21:00)
[2018-01-11] MEDS ORDERED: Lidocaine -MPF 2% 2 ML VIAL ONE (21:49)
[2018-01-11] MEDS ORDERED: *HR* Propofol 200 MG/20 ML VIAL IVP ONE (21:49)
[2018-01-11] MEDS ORDERED: *HR* FentaNYL (PF) 100 MCG/2 ML VIAL ONE (21:49)
--- NOTE | 2018-01-11 21:57 | Anesthesia Evaluation PreOp ---
Date of Encounter: 01/12/18 Time of Encounter: 22:04 - Past History Planned Operation: 2nd toe amp re: diabetic foot infection Cardiac History: Hyperlipidemia, Arrhythmia (Diltiazem for rate/rythym control. [Pt denies having AFib]) Pulmonary History: Denies Any Significant HX ACADEMY EDUCATION DIRECTOR History: Other (Peripheral Neuropathy. [place]) Other Medical History: Renal (stage 3 CKD), Diabetes Type II Anesthesia History: No Prior Anesthetic Complications, Past Anesthesia (bowel surgery) Alcohol Use: none Drug use: none Medications and Allergies Clopidogrel [Plavix] 75 mg PO DAILY 06/04/15 [History] Finasteride [Proscar] 5 mg PO DAILY 06/04/15 [History] Glimepiride [Amaryl] 4 mg PO QAM 06/04/15 [History] Lovastatin 10 mg PO DAILY 06/04/15 [History] Calcitriol [Rocaltrol] 0.25 mcg PO DAILY 01/08/18 [History] Ciclopirox 1 applic TP DAILY 01/08/18 [History] Collagenase Oint [Santyl] 1 applic TP DAILY 01/08/18 [History] Donepezil [Aricept] 5 mg PO HS 01/08/18 [History] Glimepiride [Amaryl] 2 mg PO QPM 01/08/18 [History] Ibuprofen [Motrin] 400 mg PO Q6HR PRN 01/08/18 [History] Omeprazole [PriLOSEC] 40 mg PO DAILY 01/08/18 [History] dilTIAZem HCl [Diltiazem 24Hr ER] 120 mg PO DAILY 01/08/18 [History] Allergy/AdvReac Type Severity Reaction Status Date / Time Penicillins AdvReac Itching Verified 01/08/18 18:40 - Meds/Allergy Pre-op Review Medications Reviewed: Yes Allergies Reviewed: Yes Anesthesia Results - Labs 01/11/18 09:47 01/11/18 09:47 Laboratory Results Laboratory Tests 01/11/18 09:47 Est GFR (Non-Af Amer) 32 L - Imaging EKG: image reviewed (Pre-op EKG = 80 bpm SR w/ ocasional Supraventricular premature complexes. LAD pattern c/w pulmonary dz. Moderate IVC. ST devation and moderate T wave abnormality, lateral ischemia considered.) Anesthesia Exam Vital Signs Temp Pulse Resp BP Pulse Ox 01/11/18 21:36 98.0 F 73 16 133/61 98 01/11/18 14:46 98.1 F 84 18 133/67 98 01/11/18 10:38 97.6 F 77 15 147/65 93 01/11/18 06:43 98 F 90 15 158/82 95 01/11/18 03:36 97.6 F 78 14 153/75 98 Intake and Output 01/11/18 01/11/18 01/11/18 07:59 15:59 23:59 Intake Total 0 / 0 380 / 380 0 / 0 Output Total 100 / 100 300 / 300 0 / 0 Balance -100 / -100 80 / 80 0 / 0 Intake: IV Fluids 20 / 20 Maxipime 2,000 MG In Water for 20 20 inj. (sterile) 20 ML @ 300 mls/ hr IVP Q24H [facility] Rx#:[id number] Oral 0 / 0 360 / 360 0 / 0 Output: Urine 100 / 100 300 / 300 0 / 0 Other: Meal Breakfast Stool Size Small Stool Consistency liquid Stool Color Brown # Bowel Movements 0 1 0 Weight 104.1 kg Blood Glucose* 226 243 134 Patient Weight 01/11/18 23:59 Weight 104.1 kg Height: 5'11" Weight: 229# BMI = 32 Pain Scale Used: Guzmán-Salgado (Faces) - HEENT Pupil (Motor): Pupils equal, EOMI Mallampati: III Teeth: Missing, Edentulous Oral Opening: Greater than 3 - ACADEMY EDUCATION DIRECTOR LOC: Oriented ACADEMY EDUCATION DIRECTOR Motor: Normal RUE, Normal LUE, Normal RLE, Normal LLE, Normal Face ACADEMY EDUCATION DIRECTOR Sensory: Normal: RUE, LUE, RLE, LLE, Face - Cardiac Rhythm: Irregular - Pulmonary Breath Sounds: bilateral Clear Respiratory Effort: Symmetrical Anesthesia Assess/Plan ASA Score: 3 (stage 3 CKDz, DM, HTN, Arrhythmia) Level of consciousness: Cooperative, Tranquil Anesthetic Plan: General, MAC Monitoring Plan: Standard Monitors Recovery Plan: PACU Anes Supervising Prov Stmt: Pt seen/evaluated, R&B discussed, questions answered and consent obtained. Shruthi Doyle MD
--- NOTE | 2018-01-11 22:30 | Operative Note ---
Date of procedure: 01/11/18 Pre-op diagnosis: left 2nd toe osteomyelitis Post-op diagnosis: same Procedure: Amputation of left 2nd toe Implants: none Complications: none Anesthesia: MAC Local Anesthetics: 1% Lidocaine HCL SubQ (cc) Surgeon: Kishore Valencia Was there an cement tester assistant present: No Estimated blood loss (cc): 3 Specimen: left 2nd toe-pathology left 2nd toe soft tissue and bone-micro Condition: stable Disposition: PACU Procedure in Detail: Indications: A 87-year-old diabetic male with left second digit osteomyelitis who is been evaluated by vascular no intervention warranted is proceeding with a left second digit amputation for the infection and chronic ulceration present. Nature the procedure, risks versus benefits potential complications consequences of his condition and surgery discussed at length including but not limited to persistent infection bleeding swelling numbness tingling nerve damage persistent pain wound healing problems necrosis of foot need for amputation of foot or leg nonhealing of wound heart attack blood clot pulmonary embolism need for further surgery. No guarantees made as to the outcome of any procedure and it was explained that he could still have a wound to heal despite having the amputation. All of his questions were answered and the informed consent was signed. Patient was taken preoperative holding into the operating room placed on operating room table in the supine position. The left foot was scrubbed prepped and draped in the usual sterile fashion and the following procedure began after injecting 1% lidocaine plain into the patient's left foot. Left second digit amputation. Attention was directed to the dorsal aspect of the patient's left foot where a racquet-type incision was made over the left second digit at the level of the MTP joint. This incision was full-thickness and the second digit was disarticulated at the metatarsophalangeal joint. Extensor and flexor tendons were traced as far proximal as possible and cut. Site was flushed with normal sterile saline. Toe was sent to pathology. Cultures of the tissue of the toe were sent to microbiology. There was no purulence present at the amputation site. Tissue was not devitalized and the site was deemed adequate for closure and 3-0 Vicryl was used to approximate the subcutaneous tissue and 3-0 Prolene was used to reapproximate the skin. bandaging included adaptic, 4x4 gauze and kerlix. The patient tolerated the anesthesia procedure well escorted the recovery room vital signs stable and vascular status intact to the left foot noted by instant capillary refill time to the remaining digits of the left foot. Adequate hemostasis was present. Patient will return to the floor where he will continue antibiotics.
[2018-01-11] MEDS ORDERED: Neostigmine Methylsulfate 3 MG/3 ML SYRINGE ONE (22:46)
[2018-01-11] MEDS ORDERED: Bupivacaine/EPI 1:200k 0.25%PF 10 ML VIAL INFILT ONE (23:06)
[2018-01-12] MEDS ORDERED: Naloxone 0.4 MG/ML INJ IVP PRN (00:33)
[2018-01-12] MEDS ORDERED: *HR* Dextrose 50 % in Water (Syg) 50 ML SYRINGE IVP PRN (00:33)
[2018-01-12] MEDS ORDERED: Dextrose Gel 15 GM/37.5 ML TUBE PO PRN ×2 (00:33)
--- NOTE | 2018-01-12 00:34 | Anesthesia Evaluation Post Op ---
Date of Encounter: 01/12/18 Time of Encounter: 00:32 - Lungs Lungs: Clear Ascult./Percussion - Airway Airway: Non-obstructed - Cardiovascular Regular Rate - Mental Status Mental Status: Alert & Oriented, Answers Appropriately - Pain Pain Scale: 0 Pain Scale used: GuzmánSj (Faces) - Nausea Vomiting Nausea Vomiting: Not Present - Hydration Hydration: Has not voided - Discharge PostOp Status: Transfer Patient to floor Anes Supervising Prov Stmt: Pt seen/evaluated,VSS and has met criteria for discharge to home. - MD Vivek
[2018-01-12] MEDS: Acetaminophen 325 MG TABLET PO PRN ×2 (04:23→20:25)
[2018-01-12] MEDS: *HR* Heparin 5,000 UNIT/ML VIAL SQ SCH ×2 (05:33→17:03)
[2018-01-12] MEDS: Finasteride 5 MG TABLET PO SCH (08:21)
[2018-01-12] MEDS: Diltiazem CD (24hr) 120 MG CAPSULE PO SCH (08:22)
[2018-01-12] MEDS: Insulin LISPRO 300 UNITS/3 ML VIAL SQ SCH ×3 (09:07→17:03)
[2018-01-12] MEDS: CICLOPIROX TP SCH (09:08)
[2018-01-12] MEDS: Cefepime HCl 2,000 MG in Water for inj. (sterile) 20 ML 20 ML IVP SCH (15:04)
[2018-01-12] MEDS ORDERED: Ipratropium/Albuterol Neb 3 ML IH ONE (15:14)
--- NOTE | 2018-01-12 17:15 | Internal Med Progress Note ---
Hospitalist Progress Note - Encounter Date of Encounter: 01/12/18 Time of Encounter: 17:13 - Subjective Interval History: Pt has been out of bed and ambulated with walker today. he is doing well today. - Exam Vitals: Temp Pulse Resp BP Pulse Ox 97.3 F L 97 18 137/72 100 01/12/18 15:52 01/12/18 15:52 01/12/18 15:52 01/12/18 15:52 01/12/18 15:52 Exam: Exam: General appearance: No acute distress Eye exam: EOMI, PERRLA ENT exam: Moist oral mucosa, hard of hearing Neck: non-tender, supple Respiratory exam: Clear to auscultation bilaterally Cardiovascular exam: Regular rate and rhythm, no systolic murmur Abdominal exam: Soft, non-tender, non-distended, positive bowel sounds Extremities exam: Left foot-erythematous dorsum that extend to toes but especially second toe where almost 1 cm diameter ulcer medially with no active discharge. Neurological exam: Alert, awake, oriented 3, CN II-XII intact, no focal deficits. No facial droop. Normal speech. Unable to ambulate due to foot ulcer. Motor 4-5 x 5 in all extremities - Assessment and Plan (1) Osteomyelitis Current Visit: Yes Status: Acute Assessment and Plan: Right leg wound culture 11/29/2016 grew MRSA. Patient was started on vancomycin and cefepime Patient going for left toe amputation by podiatry later today ID on board and will assist in determining if the patient needs IV or if he can be switched to by mouth antibiotics. Once Intra-Op cultures are finalized antibiotics will be tailored accordingly. Pharmacy to dose Vancomycin. (2) Diabetic infection of left foot Current Visit: Yes Status: Acute Assessment and Plan: We will continue with his diabetic regimen and monitoring blood sugars monitoring for pain control. Placed on basal and SSI. (3) Hypertension Current Visit: Yes Status: Acute Assessment and Plan: On Diltiazem We will continue to monitor vital signs per protocol (4) CKD (chronic kidney disease) stage 3, GFR 30-59 ml/min Current Visit: Yes Status: Acute Assessment and Plan: GFR remains a stage III level with level low at 38. Will continue to monitor creatinine levels. Will continue to monitor daily labs DVT Prophylaxis: SCDs, heparin - Time Spent with Patient Total time spent is greater than 50% in coordination of care (as documented) at patient's floor/unit and/or counseling patient: Greater than 35 minutes Plan of Care Discussed with: patient Internal Medicine: Result - Labs CBC & Chem 7: 01/11/18 09:47 01/11/18 09:47 - ABG Interpretation ABG results: PT/INR, D-dimer PT 13.1 Seconds (9.4-12.1) H 01/08/18 17:28 - VTE Documentation of Mechanical Device: Intermittent pneumatic compression device Consult Discharge Plan - Plan Additional Instructions: Follow up in 1 week post d/c with Dr Valencia outpatient Referrals: Kishore Valencia, MATY [Partnered Physician] - Howard Finn DO [Primary Care Provider] - (1) Osteomyelitis Qualifiers: Osteomyelitis type: unspecified type Osteomyelitis location: foot Lat erality: left Qualified Code(s): M86.9 - Osteomyelitis, unspecified (3) Hypertension Qualifiers: Hypertension type: essential hypertension Qualified Code(s): I10 - Essential (primary) hypertension
[2018-01-12] MEDS: Insulin DETEMIR 100 UNIT/ML X5UNITS SQ SCH (20:25)
[2018-01-13] MEDS: *HR* Heparin 5,000 UNIT/ML VIAL SQ SCH ×2 (05:23→17:26)
[2018-01-13 06:50] LABS: Basophils % 0.1 %; Eosinophils % 0.1 %; Hematocrit 37.6 % (37.5-50.1); Hemoglobin 12.2 g/dL (12.9-16.9); Immature Granulocytes % 0.6 % (0-4); Lymphocytes % 9.1 %; Mean Corpuscular HGB Conc 32.4 g/dL (31.6-35.5); Mean Corpuscular Hemoglobin 30.5 pg (28.0-33.3); Mean Platelet Volume 13.1 fL (9.4-12.4); Monocytes # 1.1 K/mcL (0.0-1.3); Neutrophils # 9.1 K/mcL (1.6-8.9); Platelet Count 102 K/mcL (140-400); Red Cell Distribution Width 13.6 % (11.5-14.5); Segmented Neutrophils % 80.1 %
[2018-01-13 07:10] LABS: Calcium 9.2 mg/dL (8.6-10.3); Potassium 3.9 mEq/L (3.5-5.1)
[2018-01-13] MEDS: CICLOPIROX TP SCH (08:14)
[2018-01-13] MEDS: Insulin LISPRO 300 UNITS/3 ML VIAL SQ SCH ×3 (08:32→17:25)
[2018-01-13] MEDS: Diltiazem CD (24hr) 120 MG CAPSULE PO SCH (08:33)
[2018-01-13] MEDS: Finasteride 5 MG TABLET PO SCH (08:34)
--- NOTE | 2018-01-13 12:38 | Internal Med Progress Note ---
Hospitalist Progress Note - Encounter Date of Encounter: 01/13/18 Time of Encounter: 12:36 - Subjective Interval History: Pt has been out of bed and ambulated with walker today. he is doing well today. - Exam Vitals: Temp Pulse Resp BP Pulse Ox 98.6 F 79 20 122/71 95 01/13/18 10:01 01/13/18 10:01 01/13/18 10:01 01/13/18 10:01 01/13/18 10:01 Exam: Exam: General appearance: No acute distress Eye exam: EOMI, PERRLA ENT exam: Moist oral mucosa, hard of hearing Neck: non-tender, supple Respiratory exam: Clear to auscultation bilaterally Cardiovascular exam: Regular rate and rhythm, no systolic murmur Abdominal exam: Soft, non-tender, non-distended, positive bowel sounds Extremities exam: Left foot-erythematous dorsum that extend to toes but especially second toe where almost 1 cm diameter ulcer medially with no active discharge. Neurological exam: Alert, awake, oriented 3, CN II-XII intact, no focal deficits. No facial droop. Normal speech. Unable to ambulate due to foot ulcer. Motor 4-5 x 5 in all extremities - Assessment and Plan (1) Osteomyelitis Current Visit: Yes Status: Acute Assessment and Plan: Right leg wound culture 11/29/2016 grew MRSA. Patient was started on vancomycin and cefepime s/p left toe amputation by podiatry 01/11/2018. ID on board and will assist in determining if the patient needs IV or if he can be switched to by mouth antibiotics. Once Intra-Op cultures are finalized antibiotics will be tailored accordingly. Pharmacy to dose Vancomycin. (2) Diabetic infection of left foot Current Visit: Yes Status: Acute Assessment and Plan: We will continue with his diabetic regimen and monitoring blood sugars monitoring for pain control. Placed on basal and SSI. (3) Hypertension Current Visit: Yes Status: Acute Assessment and Plan: On Diltiazem We will continue to monitor vital signs per protocol (4) CKD (chronic kidney disease) stage 3, GFR 30-59 ml/min Current Visit: Yes Status: Acute Assessment and Plan: GFR remains a stage III level with level low at 38. Will continue to monitor creatinine levels. Will continue to monitor daily labs DVT Prophylaxis: SCDs, heparin - Time Spent with Patient Total time spent is greater than 50% in coordination of care (as documented) at patient's floor/unit and/or counseling patient: Greater than 35 minutes Plan of Care Discussed with: patient Internal Medicine: Result - Labs CBC & Chem 7: 01/13/18 05:42 01/13/18 05:42 Labs: Short CBC 01/13/18 Range/Units 05:42 WBC 11.4 H (4.3-11.1) K/mcL Hgb 12.2 L (12.9-16.9) g/dL Hct 37.6 (37.5-50.1) % Plt Count 102 L (140-400) K/mcL Neutrophils # 9.1 H (1.6-8.9) K/mcL BMP 01/13/18 05:42 Sodium 138 Potassium 3.9 Chloride 108 H Carbon Dioxide 21 L BUN 68 H Creatinine 2.19 H Glucose 194 H Calcium 9.2 - ABG Interpretation ABG results: PT/INR, D-dimer PT 13.1 Seconds (9.4-12.1) H 01/08/18 17:28 - VTE Documentation of Mechanical Device: Intermittent pneumatic compression device Consult Discharge Plan - Plan Additional Instructions: Follow up in 1 week post d/c with Dr Valencia outpatient Referrals: Kishore Valencia DPM [Partnered Physician] - Howard Finn DO [Primary Care Provider] - (1) Osteomyelitis Qualifiers: Osteomyelitis type: unspecified type Osteomyelitis location: foot Laterality: left Qualified Code(s): M86.9 - Osteomyelitis, unspecified (3) Hypertension Qualifiers: Hypertension type: essential hypertension Qualified Code(s): I10 - Essential (primary) hypertension
[2018-01-13] MEDS: Cefepime HCl 2,000 MG in Water for inj. (sterile) 20 ML 20 ML IVP SCH (15:44)
[2018-01-13] MEDS: Insulin DETEMIR 100 UNIT/ML X5UNITS SQ SCH (20:18)
[2018-01-14 04:20] LABS: Basophils % 0.1 %; Eosinophils % 0.1 %; Hematocrit 34.8 % (37.5-50.1); Hemoglobin 11.3 g/dL (12.9-16.9); Immature Granulocytes % 0.4 % (0-4); Lymphocytes # 0.6 K/mcL (0.6-4.6); Lymphocytes % 6.3 %; Mean Corpuscular HGB Conc 32.5 g/dL (31.6-35.5); Mean Corpuscular Hemoglobin 30.5 pg (28.0-33.3); Mean Corpuscular Volume 94.1 fL (83.0-100.0); Mean Platelet Volume 13.1 fL (9.4-12.4); Monocytes # 0.8 K/mcL (0.0-1.3); Monocytes % 8.6 %; Neutrophils # 8.2 K/mcL (1.6-8.9); Platelet Count 105 K/mcL (140-400); Red Cell Distribution Width 13.7 % (11.5-14.5); Segmented Neutrophils % 84.5 %
[2018-01-14 04:39] LABS: Calcium 8.9 mg/dL (8.6-10.3); Potassium 4.3 mEq/L (3.5-5.1)
[2018-01-14] MEDS: *HR* Heparin 5,000 UNIT/ML VIAL SQ SCH (05:53)
[2018-01-14] MEDS: Diltiazem CD (24hr) 120 MG CAPSULE PO SCH (08:03)
[2018-01-14] MEDS: Finasteride 5 MG TABLET PO SCH (08:03)
[2018-01-14] MEDS: Insulin LISPRO 300 UNITS/3 ML VIAL SQ SCH ×2 (08:09→11:39)
[2018-01-14] MEDS: CICLOPIROX TP SCH (09:57)
[2018-01-14 10:24] VITALS: BP 110/59
[2018-01-14] MEDS ORDERED: Clotrimazole 1% CRM 15 GM TUBE TP PRN (11:35)
--- NOTE | 2018-01-14 13:02 | Podiatry Progress Note ---
Date of Encounter: 01/14/18 Time of Encounter: 11:30 - Assessment and Plan (1) Diabetic infection of left foot Current Visit: Yes Status: Acute Assessment: Left 2nd toe amputation on 01/12/[address] Valencia. Incision well approximated. No signs of dehiscence noted. Minimal erythema and edema noted. Left great to with 1 x 1 cm ulceration noted to lateral aspect. No drainage noted. Left foot wound culture on 01/12/18 returned gram - rods. Awaiting final result Pathology pending Blood cultures pending WBC 9.7 today Plan: Cleansed foot with hibiclens Applied adaptic, 4x4 dry gauze, and kerlex to left great toe and surgical site. Change dressing per orders. Wear surgical shoes when ambulating. ID following for ATB management Can d/c to ECF once cleared with ID and Soaking Pits Supervisor. Follow up with Dr. Valencia 1 week post D/C. (2) Osteomyelitis Current Visit: Yes Status: Acute WBC improving. 9.7 today. See above plan Qualifiers: Osteomyelitis type: unspecified type Osteomyelitis location: foot Laterality: left Qualified Code(s): M86.9 - Osteomyelitis, unspecified Subjective Interval history: Patient awake in bed. Alert and oriented x 3. Son at bedside. Reports his foot feels better since surgery. Denies any calf pain, shortness of breath, chest pain, nausea, vomiting, diarrhea, fever or chills. Objective - Vital Signs Vital Signs: Vital Signs Temp Pulse Resp BP Pulse Ox 01/14/18 10:18 97.6 F 97 17 110/59 97 01/14/18 06:57 97.6 F 100 17 113/71 91 01/14/18 03:58 97.5 F L 91 18 126/71 96 01/13/18 20:06 98.2 F 90 18 148/73 91 01/13/18 14:43 98.5 F 89 18 126/81 97 Intake and Output 01/13/18 01/14/18 01/14/18 23:59 07:59 15:59 Intake Total 0 / 0 0 / 0 Output Total 150 / 150 0 / 0 Balance -150 / -150 0 / 0 Intake: Oral 0 / 0 0 / 0 Output: Urine 150 / 150 0 / 0 Other: # Voids 1 1 Blood Glucose* 167 194 223 - Lab Result Diagrams: 01/14/18 03:44 01/14/18 03:44 Labs: Abnormal lab results RBC 3.70 M/mcL (4.19-5.50) L 01/14/18 03:44 Hgb 11.3 g/dL (12.9-16.9) L 01/14/18 03:44 Hct 34.8 % (37.5-50.1) L 01/14/18 03:44 Plt Count 105 K/mcL (140-400) L 01/14/18 03:44 MPV 13.1 fL (9.4-12.4) H 01/14/18 03:44 PT 13.1 Seconds (9.4-12.1) H 01/08/18 17:28 Sodium 135 mEq/L (136-145) L 01/14/18 03:44 Carbon Dioxide 19 mEq/L (23-29) L 01/14/18 03:44 BUN 73 mg/dL (8-23) H 01/14/18 03:44 Creatinine 2.33 mg/dL (0.70-1.30) H 01/14/18 03:44 Est GFR ( Amer) 32 (> 60) L 01/14/18 03:44 Est GFR (Non-Af Amer) 27 (> 60) L 01/14/18 03:44 BUN/Creatinine Ratio 31 (6-26) H 01/14/18 03:44 Glucose 181 mg/dL (70-105) H 01/14/18 03:44 POC Glucose 194 mg/dL (70-99) H 01/14/18 07:00 Calculated Osmolality 306 (280-300) H 01/14/18 03:44 B-Natriuretic Peptide 378 pg/mL (Less than 100) H 01/09/18 04:22 Serum Total Protein 6.2 g/dL (6.4-8.9) L 01/11/18 09:47 Albumin 3.2 g/dL (3.5-5.7) L 01/11/18 09:47 Vancomycin Trough 15 mcg/mL (5-10) H 01/11/18 20:34 Microbiology, Last 48 Hours 01/12/18 00:40 Wound Culture - Preliminary Left Second Toe Gram Negative [place] 01/12/18 00:40 Gram Stain - Final Left Second Toe 01/08/18 14:38 Blood Culture - Final Peripheral Venipuncture No growth. Final report. 01/08/18 14:38 Blood Culture - Final Peripheral Venipuncture No growth. Final report. 01/10/18 15:15 Wound Culture - Final Left Foot No growth. - VTE Documentation of Mechanical Device: Intermittent pneumatic compression device Consult Discharge Plan - Plan Additional Instructions: Follow up in 1 week post d/c with Dr Valencia outpatient Referrals: Kishore Valencia DPM [Partnered Physician] - Howard Finn DO [Primary Care Provider] -
[2018-01-14] MEDS: Acetaminophen 325 MG TABLET PO PRN (14:09)
--- NOTE | 2018-01-14 14:29 | Electrocardiograph Report ---
[place] [address] Test Date: 2018-01-11 Pat Name: Marlo Betts Department: 106 Room: 3A41 Gender: M Thermostat Mechanic: [id number] : 1930 Requested By: Claudia Page Order Number: [id number] Reading MD: Rj Witt Measurements Intervals [place] Rate: 80 P: 85 CT: 146 QRS: -38 QRSD: 113 T: 127 QT: 383 QTc: 419 Interpretive Statements SINUS RHYTHM WITH OCCASIONAL SUPRAVENTRICULAR PREMATURE COMPLEXES MARKED LEFT AXIS DEVIATION Incomplete left bundle branch block Electronically Signed On 01-14-2018 14:28:24 EST by Rj Witt
[2018-01-14] MEDS ORDERED: Aminoglycoside Consult 1 EACH MC ONE (14:47)
--- NOTE | 2018-01-14 17:26 | Death Note ---
Discharge Sum: Summary - Date and Time Date of admission: 01/08/18 16:49 Date of : 01/14/18 Time of : 14:48 - Summary Details: 87-year-old male patient with history of diabetes mellitus, hypertension, pe ripheral neuropathy got admitted for newly diagnosed osteomyelitis with chronic nonhealing ulcer of left foot with failed outpatient multiple rounds of antibiotic. Patient got admitted and started dual IV antibiotic cefepime and vancomycin with the consultation of ID and hydrant setter. Patient also has second toe amputation and has been doing okay postoperatively. His vitals and lab has been stable with slight elevation in creatinine level with better control and glucose level. Wound culture with gram-negative jonny but final sensitivity report is still pending. I examined the patient around noontime and found him under stable condition with good communication vitals are stable. I was called by nursing staff that patient was found nonresponsive without pulse and respiration witnessed at bedside by FRACTIONATION SUPERVISOR who had just been placed back him to bed after bathroom. Patient was awake and talking to her but on return of FRACTIONATION SUPERVISOR she found patient unresponsive pulseless. I examined the patient and pronounced at 14:48. Patient was DNR CC therefore no resuscitation was done. Informed the family. - Additional Data Confirmation of as documented by pronouncing clinician: no pulse, no respirations, no heart sounds, pupils fixed and dilated Family: contacted Additional persons at bedside: precision optical goods worker Attending/PCP notified?: Yes Attending physician: Claudia Page MD Was code activated?: No Discharge Sum: Diag - PCOD Probable Cause of : Sepsis Discharge Sum: Prov - Provider Primary care physician: Howard Finn DO Admitting clinician: Bria Burdick Attending physician on admission: Bria Burdick Consults: 01/08/18 16:57 Consult to Podiatry [CONS] Routine Consulting Provider: [facility] Reason for Consult: Osteomyelitis of the left foot Call Completed: Yes 01/08/18 16:58 Consult to Physical Therapy [CONS] Routine Comment: Evaluate, develop and implement POC Reason for Consult: Generalized weakness Does patient have active BEDREST order?: No Is patient medically & hemodynamically stable?: Yes Patient assessed for mobility or mobilized this visit?: No Consult to Polymerization Engineer [CONS] Routine Reason for SW Consult: Discharge plan 01/09/18 08:57 Consult to Occupational Therapy [CONS] Routine Comment: Evaluate, develop and implement POC Reason for Consult: weakness Does patient have active BEDREST order?: No Is patient medically & hemodynamically stable?: Yes Patient assessed for mobility or mobilized this visit?: No 01/10/18 14:33 Consult to Infectious Diseases [CONS] Routine Consulting Provider: Infectious Disease [place] Reason for Consult: osteomylitits Time Notified: 14:34 Call Completed: No Pronouncing clinician: Bria Burdick
== END 2018-01-14 14:48 | disposition expired | DRG 616 ==
LOC: EMEROOARM 13:32 → 3ANU 13:32
PROVIDERS: ADMIT Internal Medicine Cardiovascular Disease; ATTEND Internal Medicine Cardiovascular Disease